=== PATIENT | male | born 1950 | race Hispanic/Latino ===

== ENCOUNTER 2017-09-02 18:18 | Emergency (ER) | payer MEDICARE ==
[2017-09-02 18:37] VITALS: BMI 28.7
[2017-09-02] MEDS ORDERED: Piperacillin/Tazobact 3.375 gm 100 ML IVPB STA (18:43)
[2017-09-02] MEDS ORDERED: Vancomycin 1gm in NS 250ml 1 GM/250 ML BAG IVPB STA (18:43)
[2017-09-02 18:44] VITALS: TEMP 98.6
--- NOTE | 2017-09-02 18:50 | ED PDOC ---
Arrival/HPI - General Chief Complaint: Abnormal Skin Integrity Time Seen by Provider: 09/02/17 18:33 Historian: Patient - History of Present Illness Narrative History of Present Illness (Text): 09/02/17 18:47 67-year-old male presents today with a cellulitis to the left arm. Patient states one week ago he had a tattoo on the left upper arm. Patient states shortly after he developed a redness and pain to the left upper extremity and went to the primary care physician and was started on antibiotics for cellulitis. Patient states for the past 2 days the pain has been worsening he describes the pain as a burning sensation. He denies numbness weakness or tingling in the extremity. Patient states the erythema has extended around the upper arm. Patient refusing any medications for pain. Denies fevers or chills. No chest pain or shortness of breath. No other complaints Past Medical History - Provider Review Nursing Documentation Reviewed: Yes - Travel History Have you recently traveled outside [place] w/in the past 3 mons?: No - Infectious Disease Hx of Infectious Diseases: None - Tetanus Immunization Tetanus Immunization: Unknown - Cardiac Hx Atrial Fibrillation: Yes Hx Pacemaker: Yes ([employer] 04/1999;BAT[employer] CHANGE 09/2009) Other/Comment: R chest pacemaker - Pulmonary Hx Respiratory Disorders: No - Neurological Hx Paralysis: No - HEENT Hx HEENT Disorder: No - Renal Hx Renal Disorder: No - Endocrine/Metabolic Hx Endocrine Disorders: No - Hematological/Oncological Hx Blood Transfusions: No Hx Blood Transfusion Reaction: No - Integumentary Hx Dermatological Disorder: No - Musculoskeletal/Rheumatological Hx Musculoskeletal Disorders: No - Gastrointestinal Hx Gastrointestinal Disorders: No - Genitourinary/Gynecological Hx Prostate Problems: Yes - Psychiatric Hx Emotional Abuse: No Hx Physical Abuse: No Hx Substance Use: No - Surgical History Other/Comment: R chest pacemaker - Anesthesia Hx Anesthesia: Yes Hx Anesthesia Reactions: No Hx Malignant Hyperthermia: No - Suicidal Assessment Feels Threatened In Home Enviroment: No Family/Social History - Physician Review Nursing Documentation Reviewed: Yes Family/Social History: Unknown Family HX Smoking Status: Never Smoked Hx Alcohol Use: No Hx Substance Use: No Hx Substance Use Treatment: No Allergies/Home Meds Allergies/Adverse Reactions: Allergies No Known Allergies Allergy (Verified 04/15/15 12:46) Home Medications: Home Meds Medication Instructions Recorded Confirmed Finasteride [Proscar] 5 mg PO DAILY 03/12/15 09/02/17 Tamsulosin [Flomax] 0.4 mg PO BID 03/12/15 09/02/17 Warfarin Sodium [Coumadin] 5 mg PO DAILY 05/16/15 09/02/17 Losartan [Cozaar] 25 mg PO DAILY 04/21/16 09/02/17 Alprazolam 0.5 mg PO DAILY PRN 04/22/16 09/02/17 Metoprolol Succinate [Toprol XL] 50 mg PO DAILY 04/22/16 09/02/17 Zolpidem [Ambien] 10 mg PO HS 04/22/16 09/02/17 Review of Systems - Review of Systems Constitutional: absent: Fatigue, Fevers Respiratory: absent: SOB, Cough Cardiovascular: absent: Chest Pain, Palpitations Gastrointestinal: absent: Abdominal Pain Genitourinary Male: absent: Dysuria Musculoskeletal: Arthralgias Skin: Cellulitis Neurological: absent: Headache, Dizziness Physical Exam Vital Signs Reviewed: Yes Vital Signs Temp Pulse Resp BP Pulse Ox 09/02/17 18:43 98.6 F 86 18 128/85 100 Temperature: Afebrile Blood Pressure: Normal Pulse: Regular Respiratory Rate: Normal Appearance: Positive for: Well-Appearing, Non-Toxic, Comfortable Pain Distress: None Mental Status: Positive for: Alert and Oriented X 3 - Systems Exam Head: Present: Atraumatic Mouth: Present: Moist Mucous Membranes Neck: Present: Normal Range of Motion Respiratory/Chest: Present: Clear to Auscultation, Good Air Exchange. No: Respiratory Distress, Accessory Muscle Use Cardiovascular: Present: Regular Rate and Rhythm, Normal S1, S2. No: Murmurs Back: Present: Normal Inspection Upper Extremity: Present: Normal ROM, NORMAL PULSES, Tenderness (Left upper arm ; + erythema, tenderness, edema and warm noted along the left upper arm around the tattoo. no crepitus. ), Swelling, Erythema, Neurovascularly Intact, Capillary Refill < 2s. No: Deformity Neurological: Present: GCS=15, Speech Normal Skin: Present: Warm, Dry Psychiatric: Present: Alert, Oriented x 3 Medical Decision Making ED Course and Treatment: 09/02/17 18:53 67yr old male presents today with left upper arm pain/swelling/erythema s/p new tattoo. cbc: wnl cmp: wnl blood cultures: xray left upper ARM; no fx, no subcutaneous edema PT/INR: 3.59 ptt: vancomycin and zosyn given IV. pt with left upper arm cellulitis with failure of out patient abx. offered admission to the hospital for cellulitis with failure of outpatient abx. pt is refusing admission to the hospital. pt with elevated INR: pt was advised to hold dose and f/u with PMD. pt was advised that medications will affected the INR. pt advised close f/u with pmd and Immediate return if he changes his mind or if any concerning symptoms develop. Patient has been advised to not leave the emergency room but has decided to go AGAINST MEDICAL ADVICE. The patient possesses capacity to make decisions and has voiced understanding to all my warnings of potential worsening of the condition for which medical care was sought. I have discussed all known and potential risks and consequences to the patient leaving AGAINST MEDICAL ADVICE. Patient is leaving against medical advise. AMA form signed. witness by WOODY zarate; Cellulitis, arm, elevated INR Patient signed AMA. return if you wish to continue your care Bactrim twice daily x 7 days Keflex 4 times daily x 7 days. Apply bactroban twice daily to the affected area. Follow up with the primary care physician tomorrow. return immediately if symptoms worsen,persist or if new symptoms develop. 09/02/17 19:36 - Lab Interpretations Lab Results: 09/02/17 18:35 09/02/17 18:35 Lab Results 09/02/17 18:35: PT 38.8 H*, INR 3.59 H*, APTT 45.2 H 09/02/17 18:35: WBC 5.4 D, RBC 4.12, Hgb 12.5 L, Hct 36.9 L, MCV 89.6, MCH 30.3 , MCHC 33.9, RDW 13.2, Plt Count 153, MPV 9.6, Gran % 58.7, Lymph % (Auto) 23.8 , Hudspeth % (Auto) 12.6 H, Eos % (Auto) 4.3, Baso % (Auto) 0.6, Gran # 3.16, Lymph # 1.3, Hudspeth # 0.7 H, Eos # 0.2, Baso # 0.03 09/02/17 18:35: Sodium 140, Potassium 4.1, Chloride 102, Carbon Dioxide 29, Anion Gap 13, BUN 21, Creatinine 0.8, Est GFR ( Amer) > 60, Est GFR (Non- Af Amer) > 60, Random Glucose 105, Calcium 8.9, Total Bilirubin 0.6, AST 39, ALT 31, Alkaline Phosphatase 78, Total Protein 6.7, Albumin 3.8, Globulin 2.8, Albumin/Globulin Ratio 1.4 - RAD Interpretation Radiology Orders: 09/02/17 18:42 HUMERUS LEFT [RAD] Stat - Medication Orders Current Medication Orders: Vancomycin HCl (Vancomycin 1gm) 1 gm in 250 mls @ 167 mls/hr IVPB STAT STA PRN Reason: Protocol Stop: 09/02/17 20:12 Discontinued Medications Piperacillin Sod/Tazobactam Sod (Zosyn 3.375 In Ns 100ml) 100 mls @ 200 mls/hr IVPB STAT STA PRN Reason: Protocol Stop: 09/02/17 19:12 Disposition/Present on Arrival - Present on Arrival Any Indicators Present on Arrival: No History of DVT/PE: No History of Uncontrolled Diabetes: No Urinary Catheter: No History of Decub. Ulcer: No History Surgical Site Infection Following: None - Disposition Have Diagnosis and Disposition been Completed?: Yes Diagnosis: Cellulitis of arm, Elevated INR Disposition: AGAINST MEDICAL ADVICE Disposition Time: 19:29 Patient Plan: Other (AMA) Patient Problems: Current Active Problems Problem Status Onset Cellulitis of arm Acute Elevated INR Acute Condition: FAIR Discharge Instructions (ExitCare): Cellulitis (ED) Additional Instructions: return if you wish to continue your care Bactrim twice daily x 7 days Keflex 4 times daily x 7 days. Hold your coumadin dose tomorrow. Apply bactroban twice daily to the affected area. Follow up with the primary care physician tomorrow. return immediately if symptoms worsen,persist or if new symptoms develop. Prescriptions: Cephalexin [Keflex] 500 mg PO QID #28 capsule Mupirocin 2% Ointment [Bactroban Ointment] 1 applic TOP BID #1 tube Sulfamethoxazole/Trimethoprim [Bactrim DS 800 mg-160 mg] 1 tab PO BID #14 tab Forms: [employer] ([place]i)
[2017-09-02 19:16] LABS: BASO # 0.03 K/mm3 (0.0-2.0); BASO % 0.6 % (0.0-3.0); EOS # 0.2 (0.0-0.7); EOS % 4.3 % (1.5-5.0); GRAN # 3.16 (1.4-6.5); GRAN % 58.7 % (50.0-68.0); HEMATOCRIT 36.9 % (42.0-52.0); LYMPH # 1.3 (1.2-3.4); LYMPH % 23.8 % (22.0-35.0); MEAN CELL VOLUME 89.6 fl (80.0-105.0); MEAN CORPUSCULAR HEMOGLOBIN 30.3 pg (25.0-35.0); MEAN CORPUSCULAR HGB CONC 33.9 g/dl (31.0-37.0); MEAN PLATELET VOLUME 9.6 fl (7.0-11.0); MONO # 0.7 (0.1-0.6); MONO % 12.6 % (1.0-6.0); RED CELL DISTRIBUTION WIDTH 13.2 % (11.5-14.5); WHITE BLOOD COUNT 5.4 10^3/ul (4.5-11.0)
[2017-09-02 19:23] LABS: ALB/GLOB RATIO 1.4 (1.1-1.8); ALKALINE PHOSPHATASE 78 U/L (38-126); ALT/SGPT 31 U/L (7-56); AST/SGOT 39 U/L (17-59); BILIRUBIN,TOTAL 0.6 mg/dL (0.2-1.3); BLOOD UREA NITROGEN 21 mg/dL (7-21); CALCIUM 8.9 mg/dL (8.4-10.5); CARBON DIOXIDE 29 mmol/L (21-33); CHLORIDE 102 mmol/L (98-107); GFR AFRICAN-AMERICAN > 60; GLUCOSE,RANDOM 105 mg/dL (70-110); PARTIAL THROMBOPLASTIN TIME 45.2 Seconds (23.7-30.8); POTASSIUM 4.1 mmol/L (3.6-5.0); SODIUM 140 mmol/L (132-148); TOTAL PROTEIN 6.7 g/dL (5.8-8.3)
[2017-09-02 19:27] LABS: INR 3.59 (0.93-1.08)
[2017-09-02 22:02] VITALS: BP 122/76; PULSE 76; RESP 16; O2SAT 99
--- NOTE | 2017-09-03 09:28 | RAD ---
PROCEDURE: Radiographs of the left humerus. HISTORY: cellulitis COMPARISON: None. FINDINGS: BONES: No evidence of acute displaced fracture nor dislocation. No definitive cortical destructive changes Significant DJD left glenohumeral joint with joint space narrowing, subchondral sclerosis and large osteophyte arising from inferomedial aspect of the left humeral head. Smaller osteophyte arising from the inferior lip of the glenoid, minor DJD left acromioclavicular joint. . SOFT TISSUES: No obvious subcutaneous emphysema however if cellulitis suspected clinically recommend followup three-phase bone scan or MRI OTHER FINDINGS: None. IMPRESSION: No evidence of acute displaced fracture nor dislocation. No definitive cortical destructive changes. No evidence of subcutaneous emphysema. If cellulitis suspected clinically recommend followup 3 phase bone scan or MRI Significant degenerative osteoarthritis left glenohumeral joint with lesser degenerative osteoarthritis left acromioclavicular joint.
== END 2017-09-02 21:30 | disposition left against medical advice (07) ==
LOC: ED 18:18
DX: L03.114 Cellulitis of left upper limb (principal); R79.1 Abnormal coagulation profile; I48.91 Unspecified atrial fibrillation
CPT/HCPCS: 73060; 80053; 85025; 85610; 85730; 87040; 96365; 96367; 99284; J2543

== ENCOUNTER 2017-12-11 11:26 | Emergency (ER) | payer MEDICARE ==
[2017-12-11 11:26] VITALS: BMI 28.7
[2017-12-11 12:09] VITALS: BP 99/68; PULSE 73; RESP 17; TEMP 98.7; O2SAT 95
== END 2017-12-11 12:40 | disposition left against medical advice (07) ==
LOC: ED 11:26
DX: Z02.89 Encounter for other administrative examinations (principal); R05 Cough

== ENCOUNTER 2018-12-06 13:27 | Outpatient (CLI) | payer MEDICARE | END 2018-12-06 13:28 | disposition home or self-care (01) | LOC: CARDIO 13:27 ==